=== PATIENT | male | born 1945 | race Asian ===

== ENCOUNTER 2021-03-08 06:53 | Day surgery (SDC) | payer OTHER ==
[~2021-03-08] VITALS: Ht 172.7 cm; Wt 70.3 kg
[2021-03-08] MEDS ORDERED: fentaNYL citrate 0.05 MG/ML VIAL ONE (09:09)
[2021-03-08] MEDS ORDERED: LIDOCAINE 2% 100 MG/5 ML UJET TP ONE (09:10)
[2021-03-08] MEDS ORDERED: fentaNYL citrate 0.05 MG/ML VIAL IVP ONE (11:05)
== END 2021-03-08 10:20 | disposition home or self-care (01) ==
LOC: MOR 06:53 → MMU 07:01 → MOR 10:20
PROVIDERS: ATTEND Internal Medicine Gastroenterology
DX: Z12.11 Encounter for screening for malignant neoplasm of colon (principal); R19.4 Change in bowel habit; I10 Essential (primary) hypertension; E11.9 Type 2 diabetes mellitus without complications; Z86.010 Personal history of colon polyps; Z79.84 Long term (current) use of oral hypoglycemic drugs; Z79.899 Other long term (current) drug therapy
CPT/HCPCS: 45378; J3010